=== PATIENT | male | born 1950 | race Caucasian/White ===

== ENCOUNTER 2025-07-03 10:30 | Outpatient (RCR) | payer MEDICARE, BC, SELFPAY | END 2025-09-21 08:32 | disposition home or self-care (01) | PROVIDERS: PCP Family Medicine; Visit Provider Nurse Practitioner | DX: M54.2 Cervicalgia (principal); M54.12 Radiculopathy, cervical region; Z51.89 Encounter for other specified aftercare | CPT/HCPCS: 97110; 97140; 97161 ==